=== PATIENT | male | born 1950 | race Caucasian/White ===

== ENCOUNTER 2023-07-21 10:39 | Outpatient (AMB) | payer OTHER, SELFPAY ==
--- NOTE | 2023-07-21 11:02 | A.OFFVIS_ITS ---
Vital Signs 07/21/23 11:25 Height 5 ft 11 in Weight 267 lb 6 oz BMI 37.3 BP 134/84 Blood Pressure Location Lt brachial Position Sitting Respiration 16 Pulse 60 Pulse Source Pulse Oximeter Pulse Oximetry (%) 100 Oxygen Delivery Method Room Air Intake Visit Reasons: low back pain radiating down R leg Intake Note: Patient comes in for initial visit was referred by . Reports pain 05/29. Allergies gabapentin Allergy (Unknown, Verified 07/21/23 11:08) Abdominal Pain HPI Comments Details: John is very pleasant 72 years old gentleman who presents in my office with complains on pain in the lower back mostly on the right side. He is a patient of the office of Dr. Cris Navarrete and he was referred here for consideration of SCS. He does not know what was the cause of the pain, he reported that the pain started 10 months ago. Because of his pain he can not sleep normally can not do activities of daily living can not take care of himself can not function normally. He reports that he has his pain more aggravated when flexing forward than flexing backwards. He reports pain more severe with prolonged sitting. 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 In terms of tissue damage he reports his pain as shooting, tingling, dull, spreading sensation. He had MRI of the lumbar spine performed and [facility] radiology in [place]. According to the medical note on the MRI mild chronic compression deformity at T11-T12 and severe degenerative disc disease at T7-T8. The lumbar spine MRI revealed multilevel degenerative changes with desiccation and loss of disc height throughout this lumbar spine. At L4-5 there is complete loss of disc height and near autofusion, there is retrolisthesis of L2 on L3 and L3 on L4. He also reports that he has a disc at home which he will be able to present to us for evaluation of the lumbar spine. He was treated by injections in the past Dr. Granados office reports 2. epidural steroid injection 1 at L3 and 1 at L5 levels. Patient denies any help from the injections. He had extensive physical therapy at [facility] and reported only limited pain improvement. His past medical history is reportable fatigue angina and cardiac disease. Does not look like that he takes any blood thinners his medications are atorvastatin carvedilol, allopurinol, Entresto, hydrochlorothiazide , aspirin vitamin-D vitamin B12 and omeprazole. Review of Systems Const All systems reviewed & are unremarkable except as noted in HPI and below ENT Reports Normal hearing present Card Reports as per HPI Resp Reports no additional complaints GI Reports no additional complaints Reports no additional complaints Musc Reports as per HPI Neuro Reports no additional complaints, Reports Normal hearing present, Denies Abnormal speech present, Denies confusion and Denies Sensory deficit (Neuro) Psych Reports no additional complaints and Denies confusion Physical Exam Vital Signs: Last Vital Signs Pulse 60 07/21/23 11:25 Resp 16 07/21/23 11:25 BP 134/84 07/21/23 11:25 Pulse Ox 100 07/21/23 11:25 Oxygen Delivery Method Room Air 07/21/23 11:25 BMI result Body Mass Index 37.3 Const General: no acute distress; No confusion Orientation/consciousness: patient oriented x3 and No confusion Eyes General: appearance normal, both eyes and all related structures Pupils: Equal, round and reactive pupils present EOM: EOMs intact bilaterally Neck Neck: Yes full ROM Chest Chest palpation & inspection: normal inspection of the chest Resp Effort & Inspection: normal respiratory effort, able to speak in complete sentences, normal respiratory pattern, no audible wheezes and no cough Cardio Jugular venous distension: no JVD GI Inspection: Yes normal to inspection Back/Spine/Pelvis Other: SLR is negative bilaterally lassegue test is negative bilaterally, flexing forward aggravates the pain more than flexing backwards. Loading test is negative bilaterally. Torso twisting aggravates pain. Stinchfield test is is positive on the right. Pelvic compression, pelvic distraction, and Alber tests are positive on the right. Neuro General: patient oriented x3, gait normal and No confusion Cranial nerves: Yes CN's II-XII intact bilaterally, Yes Equal, round and reactive pupils present, Yes Normal hearing present and Yes Ability to bilaterally elevate shoulders present Speech: No Abnormal speech present Gait exam (Neuro): Normal gait present Motor exam (neuro): 5/5 motor strength present throughout Sensory Exam: No Sensory deficit (Neuro) Extrem General: No pedal edema Psych Speech and movement: Normal speech and movement present Affect: normal affect Attitude: cooperative Thought process: Normal thought process present Thought content: Normal thought content present Insight: Good insight present (Psych) Judgement: Good judgement present (Psych) Assessment & Plan Assessment & Plan (1) Sacroiliitis: Code(s): M46.1 - Sacroiliitis, not elsewhere classified Category: Medical (2) Chronic right sacroiliac joint pain: Code(s): M53.3 - Sacrococcygeal disorders, not elsewhere classified; G89.29 - Other chronic pain Category: Medical (3) Spondylosis of lumbar joint: Code(s): M47.816 - Spondylosis without myelopathy or radiculopathy, lumbar region Category: Medical (4) Disc degeneration, lumbar: Code(s): M51.36 - Other intervertebral disc degeneration, lumbar region Category: Medical (5) Chronic pain syndrome: Code(s): G89.4 - Chronic pain syndrome Category: Medical Plan I requested the patient to bring me the MRI from [facility] for my personal evaluation, I also recommended him to get into contact with [facility] psychiatry to schedule psychological evaluation in preparation of Lut[employer]ix spinal cord stimulation trial. Even before the trial I would like to attempt diagnostic right sacroiliac joint injection. If this injection will not be effective we will proceed into the trial of spinal cord stimulator. Coding Level of Care Code New Pt Level 3 (02107) Diagnoses Sacroiliitis M46.1 Chronic right sacroiliac joint pain M53.3; G89.29 Spondylosis of lumbar joint M47.816 Disc degeneration, lumbar M51.36 Chronic pain syndrome G89.4
[2023-07-21 11:25] VITALS: BP 134/84; PULSE 60; RESP 16; O2SAT 100; BMI 37.3
== END 2023-07-21 11:32 | disposition home or self-care (01) ==
PROVIDERS: PCP Physician Assistant; Visit Provider Anesthesiology
DX: M46.1 Sacroiliitis, not elsewhere classified (principal); M53.3 Sacrococcygeal disorders, not elsewhere classified; G89.29 Other chronic pain; M47.816 Spondylosis without myelopathy or radiculopathy, lumbar region; M51.36 Other intervertebral disc degeneration, lumbar region; G89.4 Chronic pain syndrome
CPT/HCPCS: 99203

== ENCOUNTER → 2023-07-21 10:39 | Outpatient (BNVA) | payer OTHER, SELFPAY | PROVIDERS: PCP Physician Assistant; Visit Provider Anesthesiology ==

== ENCOUNTER 2023-08-17 06:07 | Outpatient (REF) | payer OTHER, SELFPAY ==
--- NOTE | ~2023-08-17 | FL_ITS ---
EXAMINATION: XR FLUOROSCOPY WITH IMAGES CLINICAL INFORMATION: Sacrococcygeal disorder. COMPARISON: None available. TECHNIQUE: Fluoroscopy Supervised By: Dr. Smith. Fluoroscopy Time: 0.2 min. Cumulative Dose: 6.36 mGy. DAP: 0.110 Gycm2. Images: 1. FINDINGS: Intraoperative fluoroscopy and spot films were performed during a procedure in the OR. Single image demonstrates a needle within the right SI joint with contrast in place. Small amount of contrast is present medially overlying the sacrum as well. Please see Dr. Smith's report for complete details. FL/FL guidance in treatment room IMPRESSION: Intraoperative fluoroscopy and spot films were obtained. Please see Dr. Smith's report for complete details.
== END 2023-08-17 06:08 | disposition home or self-care (01) ==
LOC: CF 06:07
PROVIDERS: Visit Provider Anesthesiology
DX: M46.1 Sacroiliitis, not elsewhere classified (principal); M53.3 Sacrococcygeal disorders, not elsewhere classified; G89.29 Other chronic pain
CPT/HCPCS: 27096; J2795; Q9967

== ENCOUNTER 2023-08-17 07:14 | Outpatient (AMB) | payer OTHER, SELFPAY ==
--- NOTE | 2023-08-17 07:21 | MHC.OFFVIS ---
Vital Signs 08/17/23 07:45 08/17/23 08:53 Height 5 ft 11 in Weight 267 lb BMI 37.2 BP 112/62 118/68 Blood Pressure Location Lt brachial Lt brachial Position Sitting Sitting Respiration 18 18 Pulse 68 72 Pulse Source Pulse Oximeter Pulse Oximeter Pulse Oximetry (%) 95 96 Oxygen Delivery Method Room Air Room Air Comment Pre-Op Post-Op Intake Visit Reasons: Right Dx SIJ inj Allergies gabapentin Allergy (Unknown, Verified 07/21/23 11:08) Abdominal Pain Physical Exam Vital Signs: Last Vital Signs Pulse 72 08/17/23 08:53 Resp 18 08/17/23 08:53 BP 118/68 08/17/23 08:53 Pulse Ox 96 08/17/23 08:53 Oxygen Delivery Method Room Air 08/17/23 08:53 BMI result Body Mass Index 37.2 Assessment & Plan Assessment & Plan (1) Sacroiliitis: Code(s): M46.1 - Sacroiliitis, not elsewhere classified Category: Medical (2) Chronic right sacroiliac joint pain: Code(s): M53.3 - Sacrococcygeal disorders, not elsewhere classified; G89.29 - Other chronic pain Category: Medical Plan Left diagnostic sacroiliac joint injection. Informed consent was explained thoroughly to the patient. All questions about benefits and risks for the procedure were answered. Patient came to the operating room and was positioned prone on the operating table with the pillow under the pelvis. Time out was performed delineating name and of the patient, allergies and the nature of the procedure. The lower back and buttocks of the patient were prepped with ChloraPrep prepped and draped with sterile utility towels. C-arm was brought over the operating field and sq picture of patient's pelvis was demonstrated on the screen. For the Left joint tilting C-arm contralateral to the site of the joint the most posterior portion of the joints was superimposed with anterior silhouette of the joint. Skin was injected in the projection of the joint slightly medial to the location of the joint with 25 gauge 1/2 inch needle using local lidocaine 2% . After that 22 gauge 3 and 1/2 inch needle was driven to the right joint in tunnel vision fashion. When needle entered the joint capsule injection of the contrast was performed demonstrating intra-articular and minimally periarticular spread of the contrast. After that 5 cc. of ropivacaine 0.5% was injected into the joint. Upon completion of the injections the needle was removed Sterile dressing was applied. Upon completion of the injection patient was taken outside of the operating room to the recovery room where recovered uneventfully. Orders: Orders FL guidance in treatment room Today G89.29 - Other chronic pain, M53.3 - Sacrococcygeal disorders, not elsewhere classified Coding Level of Care Code Procedure Only Diagnoses Sacroiliitis M46.1 Chronic right sacroiliac joint pain M53.3; G89.29
[2023-08-17 07:45] VITALS: BP 112/62; PULSE 68; RESP 18; O2SAT 95; BMI 37.2
[2023-08-17 08:53] VITALS: BP 118/68; PULSE 72; RESP 18; O2SAT 96
== END 2023-08-17 08:30 | disposition home or self-care (01) ==
LOC: HO.PMCPRC 07:14
PROVIDERS: PCP Physician Assistant; Visit Provider Anesthesiology
DX: M46.1 Sacroiliitis, not elsewhere classified (principal); M53.3 Sacrococcygeal disorders, not elsewhere classified; G89.29 Other chronic pain
CPT/HCPCS: 27096

== ENCOUNTER 2023-08-19 08:17 | Outpatient (AMB) | payer OTHER, SELFPAY ==
--- NOTE | 2023-08-19 08:18 | A.OFFVIS_ITS ---
Vital Signs 08/19/23 08:25 Height 5 ft 11 in Weight 260 lb 2 oz BMI 36.3 BP 134/62 Blood Pressure Location Lt brachial Position Sitting Respiration 16 Pulse 56 Pulse Source Pulse Oximeter Pulse Oximetry (%) 99 Oxygen Delivery Method Room Air Intake Visit Reasons: s/p right Dx SIJ inj Intake Note: Patient comes in for post-op appointment. Reports pain 4/10. Allergies No Known Allergies Allergy (Verified 08/19/23 08:28) HPI Comments Details: John is back in my office after diagnostic left sacroiliac joint injection which was performed on 08/17/2023. She basically denies any improvement after the procedure she reports pain immediately after the procedure 3/10 however 1 hour to hour and 3 hours after the procedure his pain was aggravated to 6/10 while the pain before the procedure was only 4/10. So I can not consider this diagnostic procedure positive, he has multiple changes of spondylotic nature and his MRI which he brought with him today. I personally examined this MRI and discovered significant Modic type 2 and type 1 changes in the L2, L3, L4, and L5 vertebra. He reports pain with prolonged sitting, he avoid flexing forward he can not lift objects from the ground, he reports pain increase with activities. My diagnosis is vertebra genic pain syndrome, I will schedule him for L2, L3, L4, L5 intercept procedure Prior: very pleasant 72 years old gentleman who presents in my office with complains on pain in the lower back mostly on the right side. He is a patient of the office of Dr. Cris Navarrete and he was referred here for consideration of SCS. He does not know what was the cause of the pain, he reported that the pain started 10 months ago. Because of his pain he can not sleep normally can not do activities of daily living can not take care of himself can not function normally. He reports that he has his pain more aggravated when flexing forward than flexing backwards. He reports pain more severe with prolonged sitting. 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 In terms of tissue damage he reports his pain as shooting, tingling, dull, spreading sensation. He had MRI of the lumbar spine performed and [facility] radiology in [place]. According to the medical note on the MRI mild chronic compression deformity at T11-T12 and severe degenerative disc disease at T7-T8. The lumbar spine MRI revealed multilevel degenerative changes with desiccation and loss of disc height throughout this lumbar spine. At L4-5 there is complete loss of disc height and near autofusion, there is retrolisthesis of L2 on L3 and L3 on L4. He was treated by injections in the past Dr. Granados office reports 2. epidural steroid injection 1 at L3 and 1 at L5 levels. Patient denies any help from the injections. He had extensive physical therapy at [facility] and reported only limited pain improvement. His past medical history is reportable fatigue angina and cardiac disease. Does not look like that he takes any blood thinners his medications are atorvastatin carvedilol, allopurinol, Entresto, hydrochlorothiazide , aspirin vitamin-D vitamin B12 and omeprazole. Review of Systems Const All systems reviewed & are unremarkable except as noted in HPI and below ENT Reports Normal hearing present Neuro Reports Normal hearing present, Denies Abnormal speech present, Denies confusion and Denies Sensory deficit (Neuro) Psych Denies confusion Physical Exam Vital Signs: Last Vital Signs Pulse 56 08/19/23 08:25 Resp 16 08/19/23 08:25 BP 134/62 08/19/23 08:25 Pulse Ox 99 08/19/23 08:25 Oxygen Delivery Method Room Air 08/19/23 08:25 BMI result Body Mass Index 36.3 Const General: no acute distress; No confusion Orientation/consciousness: patient oriented x3 and No confusion Eyes General: appearance normal, both eyes and all related structures Pupils: Equal, round and reactive pupils present EOM: EOMs intact bilaterally Neck Neck: Yes full ROM Chest Chest palpation & inspection: normal inspection of the chest Resp Effort & Inspection: normal respiratory effort, able to speak in complete sentences, normal respiratory pattern, no audible wheezes and no cough Cardio Jugular venous distension: no JVD GI Inspection: Yes normal to inspection Back/Spine/Pelvis Other: SLR is negative bilaterally lassegue test is negative bilaterally, flexing forward aggravates the pain more than flexing backwards. Loading test is negative bilaterally. Torso twisting aggravates pain. Stinchfield test is is positive on the right. Pelvic compression, pelvic distraction, and Alber tests are positive on the right. Neuro General: patient oriented x3, gait normal and No confusion Cranial nerves: Yes CN's II-XII intact bilaterally, Yes Equal, round and reactive pupils present, Yes Normal hearing present and Yes Ability to bilaterally elevate shoulders present Speech: No Abnormal speech present Gait exam (Neuro): Normal gait present Motor exam (neuro): 5/5 motor strength present throughout Sensory Exam: No Sensory deficit (Neuro) Extrem General: No pedal edema Psych Speech and movement: Normal speech and movement present Affect: normal affect Attitude: cooperative Thought process: Normal thought process present Thought content: Normal thought content present Insight: Good insight present (Psych) Judgement: Good judgement present (Psych) Results Reviewed Results Reviewed: I personally reviewed the discs of the MRI the patient presented today in the office and they were very pronounced Modic type changes at L4 and L5 vertebra with significant endplate changes and ulcerations spreading wide into the body of L5 and L4 vertebra, he also has significant Modic type 2 changes at L2 and L3 vertebra. The full MRI description is available as it is scanned in the chart. Assessment & Plan Assessment & Plan (1) Sacroiliitis: Code(s): M46.1 - Sacroiliitis, not elsewhere classified Category: Medical (2) Chronic right sacroiliac joint pain: Code(s): M53.3 - Sacrococcygeal disorders, not elsewhere classified; G89.29 - Other chronic pain Category: Medical (3) Spondylosis of lumbar joint: Code(s): M47.816 - Spondylosis without myelopathy or radiculopathy, lumbar region Category: Medical (4) Disc degeneration, lumbar: Code(s): M51.36 - Other intervertebral disc degeneration, lumbar region Category: Medical (5) Chronic pain syndrome: Code(s): G89.4 - Chronic pain syndrome Category: Medical (6) Vertebrogenic low back pain: Code(s): M54.51 - Vertebrogenic low back pain Category: Medical Plan The diagnostic sacroiliac joint injection resulted in poor outcome. I personally examined MRI of this patient and there are very prominent vertebra genic changes as described as above. I will schedule him for intercept procedure L2, L3, L4, L5. This will be done under general anesthesia. Patient Instructions: I here by testify that I spent 35 minutes in conversation with this patient as well as evaluating his images, evaluating diagnostic reports, planning his care and organizing this note. Coding Level of Care Code Est Pt Level 4 (67927) Diagnoses Sacroiliitis M46.1 Chronic right sacroiliac joint pain M53.3; G89.29 Spondylosis of lumbar joint M47.816 Disc degeneration, lumbar M51.36 Chronic pain syndrome G89.4 Vertebrogenic low back pain M54.51
[2023-08-19 08:25] VITALS: BP 134/62; PULSE 56; RESP 16; O2SAT 99; BMI 36.3
== END 2023-08-19 08:54 | disposition home or self-care (01) ==
PROVIDERS: PCP Internal Medicine; Visit Provider Anesthesiology
DX: M46.1 Sacroiliitis, not elsewhere classified (principal); M53.3 Sacrococcygeal disorders, not elsewhere classified; G89.29 Other chronic pain; M47.816 Spondylosis without myelopathy or radiculopathy, lumbar region; M51.36 Other intervertebral disc degeneration, lumbar region; G89.4 Chronic pain syndrome; M54.51 Vertebrogenic low back pain
CPT/HCPCS: 99214

== ENCOUNTER → 2023-08-19 08:17 | Outpatient (BNVA) | payer OTHER, SELFPAY | PROVIDERS: PCP Physician Assistant; Visit Provider Anesthesiology ==